=== PATIENT | male | born 1950 | race Native Hawaiian/Other Pacific Islander ===

== ENCOUNTER 2018-10-08 10:23 | Day surgery (SDC) | payer MEDICARE, BC ==
[~2018-10-08 10:23] MED LIST: ACETAMINOPHEN 1,000 MG/100 ML BTL IV ONE
[2018-10-08] MEDS ORDERED: SEVOFLURANE 250 ML INH ONE (10:24)
[2018-10-08] MEDS ORDERED: PROPOFOL 10 MG/ML VIAL IV ONE (10:24)
[2018-10-08] MEDS ORDERED: ONDANSETRON HCL IV 4 MG/2 ML VIAL IVP ONE (10:24)
[2018-10-08] MEDS ORDERED: KETOROLAC 30 MG/ML VIAL IVP ONE (10:24)
[2018-10-08] MEDS ORDERED: MIDAZOLAM HCL 2MG/2ML VIAL IV ONE (10:24)
[2018-10-08] MEDS ORDERED: FENTANYL PF 100MCG/2ML VIAL IV ONE (10:24)
[2018-10-08] MEDS ORDERED: LIDOCAINE 2% MDV (20MG/ML) 20ML VIAL IV ONE (10:24)
[2018-10-08] MEDS ORDERED: DEXAMETHASONE 4 MG/ML 1ML VIAL IVP ONE (10:24)
[2018-10-08] MEDS ORDERED: BUPIVACAINE 0.25% W/EPI MPF 30ML VIAL IVP ONE (10:24)
[2018-10-08 10:36] LABS: BASO % 0.5 % (0-6); EOS % 3.3 % (0-6); GRAN % 68.5 % (47-80); HEMOGLOBIN 15.7 gm/dl (14.0-18.0); LYMPH % 18.2 % (16-45); MEAN CELL VOLUME 97.3 fl (81-97); MEAN CORPUSCULAR HEMOGLOBIN 32.5 pg (27-33); MEAN CORPUSCULAR HGB CONC 33.4 g/dl (32-36); MEAN PLATELET VOLUME 10.3 fl (7.4-10.4); MONO % 9.5 % (0-9); PLATELET COUNT 202 K/uL (130-400); RED BLOOD COUNT 4.83 M/uL (4.40-5.70); WHITE BLOOD COUNT W/O DIFF 6.1 K/uL (4.2-12.2)
[2018-10-08 10:57] LABS: BLOOD UREA NITROGEN 23 mg/dL (8-23); CREATININE 1.1 mg/dL (0.7-1.2); EST GLOMERULAR FILTRATION RATE > 60 mL/min; GLUCOSE,RANDOM 96 mg/dL (74-109)
--- NOTE | 2018-10-08 15:10 | Operative Note ---
DATE OF SURGERY: 10/08/2018 Surgeon: Emmanuel Oropeza DO PREOPERATIVE DIAGNOSES: 1. Torn medial meniscus of the right knee. 2. Chondromalacia of the right knee. POSTOPERATIVE DIAGNOSES: 1. Torn medial meniscus of the right knee. 2. 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 OPERATION: 1. Arthroscopic partial medial meniscectomy, right knee. 2. Arthroscopic chondroplasty of medial femoral condyle and patella, right knee. DESCRIPTION OF PROCEDURE: This 68-year-old male was taken to the operating room and placed in the supine position on the operating room table where general anesthesia was induced. The right lower extremity was elevated. It was exsanguinated and the tourniquet inflated to 300 mmHg. Arthroscopic knee pena applied. Right knee prepped with Hibiclens and draped in the usual sterile fashion. An inferolateral portal was established for the 4 mm arthroscope, and initial evaluation of the joint demonstrated normal appearance of the suprapatellar pouch. 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 The trochlea appeared relatively spared with only minimal scuffing being identified and it was not further disturbed. However, chondroplasty of the patella was necessary to stabilize the articular cartilage there. The medial gutter was examined and found to be normal. The medial compartment was entered, and a complex tear of the medial meniscus was present at the posterior horn. A flap tear with horizontal cleavage components was present. The apex of the tear being at approximately the 12-o'clock position. We tapered the tear both posteriorly and medially to form a smooth contoured surface. The scope was then placed in an inferomedial portal and the instruments laterally to get a better angle to stabilize and trim out the posterior horn of the medial meniscus. Chondroplasty was also performed of the medial femoral condyle. There were large chunks and flaps of articular cartilage just missing and presumed to be pulverized. No free-floating flaps were identified. The intracondylar notch was then found to be normal. The lateral compartment was entered, and probing of the lateral meniscus and articular cartilage of the lateral compartment revealed normal findings. The joint was copiously irrigated and suctioned. All the areas were reexamined and no additional findings were present. The joint was suctioned, the instruments were removed, the portals infiltrated with 0.25% Marcaine with epinephrine. Sterile dressings applied. Tourniquet and knee pena released, and the patient taken to the recovery room in satisfactory condition. GROSS PATHOLOGY: This patient demonstrated a complex tear of the posterior horn of the medial meniscus with grade 3 changes noted of the patella and grade 4 of the lateral aspect of the medial femoral condyle. This lesion did extend all the way over involving the entire medial femoral condyle but lesser degrees of disease were present on the medial side of the medial femoral condyle. CC: DO OLLIE Sheriff
== END 2018-10-08 13:20 | disposition home or self-care (01) ==
LOC: SUR 10:23
PROVIDERS: ATTEND Orthopaedic Surgery
DX: S83.231A Complex tear of medial meniscus, current injury, right knee, initial encounter (principal); M22.41 Chondromalacia patellae, right knee; I10 Essential (primary) hypertension; I48.91 Unspecified atrial fibrillation; Z79.01 Long term (current) use of anticoagulants; N52.9 Male erectile dysfunction, unspecified; E78.00 Pure hypercholesterolemia, unspecified
CPT/HCPCS: 29881; 01400; 85025; 80048; J1885; J2405; J3010